=== PATIENT | female | born 1955 | race Caucasian/White ===

== ENCOUNTER → 2021-02-14 | Outpatient (CLI) | payer MEDICARE ==
[~2021-02-14] MED LIST: MACRODANTIN100 MG PO; PYRIDIUM200 MG PO; ZOFRAN 4 MG TAB4 MG PO
== END ==
LOC: EMI 09:43
DX: G44.89 Other headache syndrome (principal); G43.009 Migraine without aura, not intractable, without status migrainosus; R90.89 Other abnormal findings on diagnostic imaging of central nervous system
CPT/HCPCS: 70551